=== PATIENT | female | born 1995 ===

== ENCOUNTER → 2024-08-25 09:26 | Outpatient (CLI) | payer OTHER | END | disposition home or self-care (01) | LOC: PRENATAL 09:26 | PROVIDERS: ATTEND Obstetrics & Gynecology Maternal & Fetal Medicine | DX: O36.80X0 Pregnancy with inconclusive fetal viability, not applicable or unspecified (principal); Z36.82 Encounter for antenatal screening for nuchal translucency; Z3A.12 12 weeks gestation of pregnancy ==

== ENCOUNTER 2024-10-20 08:13 | Outpatient (CLI) | payer OTHER | END 2024-10-20 08:14 | disposition home or self-care (01) | LOC: PRENATAL 08:13 | PROVIDERS: ATTEND Obstetrics & Gynecology Maternal & Fetal Medicine | DX: O44.00 Complete placenta previa NOS or without hemorrhage, unspecified trimester (principal); O26.879 Cervical shortening, unspecified trimester; O43.90 Unspecified placental disorder, unspecified trimester; Z3A.20 20 weeks gestation of pregnancy ==

== ENCOUNTER → 2024-11-12 08:05 | Outpatient (CLI) | payer OTHER | END | disposition home or self-care (01) | LOC: PRENATAL 08:05 | PROVIDERS: ATTEND Obstetrics & Gynecology Maternal & Fetal Medicine | DX: O26.849 Uterine size-date discrepancy, unspecified trimester (principal); O26.879 Cervical shortening, unspecified trimester; O99.019 Anemia complicating pregnancy, unspecified trimester; O43.90 Unspecified placental disorder, unspecified trimester; Z3A.23 23 weeks gestation of pregnancy ==

== ENCOUNTER 2025-01-26 08:57 | Outpatient (CLI) | payer OTHER | END 2025-01-26 08:58 | disposition home or self-care (01) | LOC: PRENATAL 08:57 | PROVIDERS: ATTEND Obstetrics & Gynecology Maternal & Fetal Medicine | DX: O26.843 Uterine size-date discrepancy, third trimester (principal); O36.8130 Decreased fetal movements, third trimester, not applicable or unspecified; O26.873 Cervical shortening, third trimester; O99.013 Anemia complicating pregnancy, third trimester; O43.93 Unspecified placental disorder, third trimester; Z3A.34 34 weeks gestation of pregnancy ==